=== PATIENT | female | born 1950 | race Hispanic/Latino ===

== ENCOUNTER → 2020-02-21 | Outpatient (CLI) | payer MEDICARE | END | disposition home or self-care (01) | LOC: SHCH 12:55 | PROVIDERS: ATTEND Internal Medicine Cardiovascular Disease | DX: I10 Essential (primary) hypertension (principal); R06.00 Dyspnea, unspecified | CPT/HCPCS: 93306; 93356 ==

== ENCOUNTER → 2020-04-01 | Outpatient (CLI) | payer OTHER | END | disposition home or self-care (01) | LOC: RAH 09:20 | PROVIDERS: ATTEND Internal Medicine Cardiovascular Disease | DX: K44.9 Diaphragmatic hernia without obstruction or gangrene (principal); I51.7 Cardiomegaly | CPT/HCPCS: 75571 ==

== ENCOUNTER → 2020-05-26 | Outpatient (CLI) | payer MEDICARE ==
--- NOTE | 2020-05-18 10:36 | NUR ---
PT WAS A NO SHOW FOR THIS DOS
[~2020-05-26] MED LIST: REGADENOSON 0.4 MG/5 ML PF SYG IVP SCH
== END | disposition home or self-care (01) ==
LOC: SHCH 09:36
PROVIDERS: ATTEND Internal Medicine Cardiovascular Disease
DX: R93.1 Abnormal findings on diagnostic imaging of heart and coronary circulation (principal); R06.09 Other forms of dyspnea; R06.02 Shortness of breath
CPT/HCPCS: 78452; 93017; 96374; A9500 ×2; J2785

== ENCOUNTER → 2020-06-09 | Outpatient (CLI) | payer MEDICARE | END | disposition home or self-care (01) | LOC: SHCH 10:52 | PROVIDERS: ATTEND Internal Medicine Cardiovascular Disease | DX: I73.9 Peripheral vascular disease, unspecified (principal); I87.2 Venous insufficiency (chronic) (peripheral); R06.00 Dyspnea, unspecified | CPT/HCPCS: 93970 ==

== ENCOUNTER 2021-04-01 13:22 | Emergency (ER) | payer MEDICARE ==
[~2021-04-01] VITALS: Ht 154.9 cm; Wt 72.6 kg
[2021-04-01 13:24] VITALS: BP 131/57
[2021-04-01 13:25] VITALS: BP 131/57
[2021-04-01] MEDS ORDERED: ONDANSETRON 4MG INJ IVP ONE (14:00)
[2021-04-01] MEDS ORDERED: MORPHINE 4 MG SYG IV ONE (14:00)
[2021-04-01] MEDS ORDERED: LIDOCAINE 5% TOPICAL PATCH TP ONE ×2 (14:00→14:20)
[2021-04-01] MEDS ORDERED: KETOROLAC 15MG/ML VIAL (15MG/ML) IV ONE (14:00)
[2021-04-01] MEDS ORDERED: LIDOP TD (15:45)
== END 2021-04-01 16:10 | disposition home or self-care (01) ==
LOC: EDH 13:22
DX: M48.061 Spinal stenosis, lumbar region without neurogenic claudication (principal); M54.16 Radiculopathy, lumbar region; Z79.1 Long term (current) use of non-steroidal anti-inflammatories (NSAID); Z79.899 Other long term (current) drug therapy; Z88.1 Allergy status to other antibiotic agents; Z88.2 Allergy status to sulfonamides
CPT/HCPCS: 72148; 99282

== ENCOUNTER → 2021-04-01 | Outpatient (CLI) | payer MEDICARE ==
[~2021-04-01] MED LIST changes: +LIDOP TD; -REGADENOSON 0.4 MG/5 ML PF SYG IVP SCH
== END | disposition home or self-care (01) ==
LOC: RAH 11:00
PROVIDERS: ATTEND Family Medicine
DX: M51.26 Other intervertebral disc displacement, lumbar region (principal); M48.061 Spinal stenosis, lumbar region without neurogenic claudication; M43.8X6 Other specified deforming dorsopathies, lumbar region
CPT/HCPCS: 72148

== ENCOUNTER → 2022-04-28 | Outpatient (CLI) | payer OTHER, MEDICARE | END | disposition home or self-care (01) | LOC: SHCH 11-24 10:17 → OIH 14:56 | PROVIDERS: ATTEND Internal Medicine Cardiovascular Disease | DX: I87.2 Venous insufficiency (chronic) (peripheral) (principal); I73.9 Peripheral vascular disease, unspecified; I08.3 Combined rheumatic disorders of mitral, aortic and tricuspid valves; I11.9 Hypertensive heart disease without heart failure | CPT/HCPCS: 93306; 93925; 93970 ==

== ENCOUNTER → 2022-04-28 | Outpatient (CLI) | payer OTHER, MEDICARE | END | disposition home or self-care (01) | LOC: SHCH 10:00 | PROVIDERS: ATTEND Internal Medicine Cardiovascular Disease | DX: I73.9 Peripheral vascular disease, unspecified (principal); R01.1 Cardiac murmur, unspecified | CPT/HCPCS: 93306 ==

== ENCOUNTER → 2023-05-12 | Outpatient (CLI) | payer OTHER, MEDICARE | END | disposition home or self-care (01) | LOC: SHCH 14:09 | PROVIDERS: ATTEND Internal Medicine Cardiovascular Disease | DX: I08.3 Combined rheumatic disorders of mitral, aortic and tricuspid valves (principal); I11.9 Hypertensive heart disease without heart failure; E78.5 Hyperlipidemia, unspecified | CPT/HCPCS: 93306 ==

== ENCOUNTER → 2023-11-13 | Outpatient (CLI) | payer OTHER, MEDICARE ==
[2023-11-13 13:33] LABS: CREATININE 0.6 mg/dL (0.5-1.0)
== END | disposition home or self-care (01) ==
LOC: LAB 12:12
PROVIDERS: ATTEND Physician Assistant Medical
DX: R10.31 Right lower quadrant pain (principal)
CPT/HCPCS: 36415; 82565; 84520

== ENCOUNTER → 2023-11-15 | Outpatient (CLI) | payer OTHER, MEDICARE ==
[~2023-11-15] MED LIST changes: +IOHEXOL 350 MG/ML 100ML INFUS..BTL IV ONE
== END | disposition home or self-care (01) ==
LOC: RAH 11:08
PROVIDERS: ATTEND Internal Medicine Gastroenterology
DX: K57.30 Diverticulosis of large intestine without perforation or abscess without bleeding (principal); K74.60 Unspecified cirrhosis of liver; R10.31 Right lower quadrant pain
CPT/HCPCS: 74178; Q9967